=== PATIENT | male | born 1945 | race Caucasian/White ===

== ENCOUNTER 2018-06-11 13:47 | Emergency (ER) | payer MEDICARE ==
[~2018-06-11] VITALS: Ht 175.3 cm; Wt 77.1 kg
[2018-06-11 13:56] VITALS: BP 120/88
[2018-06-11] MEDS ORDERED: methylPREDNISolone SOD SUCC 125 MG/2 ML VL IM ONE (14:45)
[2018-06-11] MEDS ORDERED: diphenhdrAMINE HCL 50 MG/1 ML VL IM ONE (14:45)
[2018-06-11] MEDS ORDERED: diphenhdrAMINE HCL 25 MG CAP PO ONE (15:15)
== END 2018-06-11 14:10 | disposition home or self-care (01) ==
LOC: ER 13:47
DX: L25.8 Unspecified contact dermatitis due to other agents (principal); R50.9 Fever, unspecified; R06.02 Shortness of breath; T37.0X5A Adverse effect of sulfonamides, initial encounter; F17.210 Nicotine dependence, cigarettes, uncomplicated; Z90.49 Acquired absence of other specified parts of digestive tract; Y92.89 Other specified places as the place of occurrence of the external cause
CPT/HCPCS: 96372; 99283; J2930

== ENCOUNTER 2018-11-12 15:41 | Inpatient (IN) | payer MEDICARE ==
[~2018-11-12] VITALS: Ht 175.3 cm; Wt 82.5 kg
[2018-11-12 16:29] LABS: Basophils # (auto) 0.1 uL; Basophils % (auto) 0.5 % (0.0-2.0); Eosinophils # (auto) 0 uL; Hemoglobin 13.1 g/dL (13.5-17.5); Lymphocytes # (auto) 1.2 uL; Lymphocytes % (auto) 7.6 % (10.0-50.0); Mean Corpuscular Hgb Conc. 32.8 g/dL (32.0-36.0); Mean Corpuscular Volume 94.5 fL (80.0-100.0); Monocytes # (auto) 1.7 uL; Neutrophils # (auto) 12.5 uL; Neutrophils % (auto) 80.9 % (37.0-80.0); Platelet Count (auto) 196 10^3/uL (140-450); Red Blood Cells 4.23 10^6/uL (4.5-5.90); Red Cell Distribution Width 12.7 % (11.8-14.3); White Blood Cell 15.5 10^3/uL (4.4-10.8)
[2018-11-12 16:40] LABS: Albumin 3.3 g/dL (3.4-5.0); Anion Gap 5 (5-15); Blood Urea Nitrogen 17 mg/dL (7-18); Carbon Dioxide 25 mmol/L (21-32); Chloride 105 mmol/L (98-107); Glucose 166 mg/dL (74-106); Magnesium 2.4 mg/dL (1.6-2.6); Potassium 4.1 mmol/L (3.5-5.1); Sodium 135 mmol/L (136-145)
[2018-11-12 16:46] LABS: Alanine Aminotransferase 17 U/L (16-61); Alkaline Phosphatase 65 U/L (45-117); Aspartate Aminotransferase 11 U/L (15-37); BUN/Creatinine Ratio 13.9; Bilirubin, Total 0.5 mg/dL (0.2-1.0); GFR African American 75 mL/min; GFR Non-African American 62 mL/min; Total Protein 7.3 g/dL (6.4-8.2)
[2018-11-12] MEDS ORDERED: ASPirin 81 mg TAB PO ONE (17:15)
[2018-11-12] MEDS ORDERED: cefTRIAXone 1GM/50ML D5W 50 ML IV ONE (17:30)
[2018-11-12 17:33] LABS: Basophils # (auto) 0.1 uL; Basophils % (auto) 0.3 % (0.0-2.0); Eosinophils # (auto) 0 uL; Eosinophils % (auto) 0.1 % (0.0-7.0); Hematocrit 41.3 % (41.0-53.0); Hemoglobin 13.8 g/dL (13.5-17.5); Lymphocytes # (auto) 1.7 uL; Lymphocytes % (auto) 10.2 % (10.0-50.0); Mean Corpuscular Hemoglobin 31.5 pg (28.0-32.0); Mean Corpuscular Hgb Conc. 33.3 g/dL (32.0-36.0); Mean Corpuscular Volume 94.7 fL (80.0-100.0); Monocytes # (auto) 2.6 uL; Monocytes % (auto) 15.2 % (0.0-12.0); Neutrophils # (auto) 12.7 uL; Neutrophils % (auto) 74.2 % (37.0-80.0); Platelet Count (auto) 198 10^3/uL (140-450); Red Blood Cells 4.36 10^6/uL (4.5-5.90); Red Cell Distribution Width 12.8 % (11.8-14.3); White Blood Cell 17.1 10^3/uL (4.4-10.8)
[2018-11-12] MEDS ORDERED: IOHEXOL 350 MG/ML 100ML IJ ONE (17:41)
[2018-11-12 17:48] LABS: Albumin 3.5 g/dL (3.4-5.0); Calcium 9.4 mg/dL (8.5-10.1); Magnesium 2.4 mg/dL (1.6-2.6); Potassium 4.8 mmol/L (3.5-5.1)
[2018-11-12 17:50] LABS: BUN/Creatinine Ratio 16.1; Bilirubin, Total 0.5 mg/dL (0.2-1.0); Total Protein 7.6 g/dL (6.4-8.2)
[2018-11-12 18:03] LABS: INR 0.97 (0.9-1.15); Partial Thromboplastin Time 27.3 sec (23.78-33.04); Prothrombin Time 10.4 sec (9.27-12.13)
[2018-11-12] MEDS ORDERED: MORPHINE SULF INJ 2 MG/ML SYRINGE 1ML IV PRN ×2 (19:00)
[2018-11-12] MEDS ORDERED: HYDROcodone-ACET 5/325MG TAB PO PRN (19:00)
[2018-11-12] MEDS ORDERED: ONDANSETRON HCL 4 MG/2 ML VIAL IV PRN (19:00)
[2018-11-12] MEDS ORDERED: ACETAMINOPHEN 500 MG TAB PO PRN (19:00)
[2018-11-12] MEDS ORDERED: NITROGLYCERIN 0.4 MG SL TAB SL PRN (19:00)
[2018-11-12 19:20] VITALS: BP 122/58
[2018-11-12] MEDS ORDERED: ENOXAPARIN SOD 40 MG/0.4 ML SYRINGE SC SCH (20:14)
[2018-11-12 22:00] VITALS: BP 123/74
[2018-11-12] MEDS: ATORVASTATIN 20 MG TAB PO SCH (22:07)
[2018-11-12] MEDS: TAMSULOSIN HYDROCHLORIDE 0.4 MG CAP PO SCH (22:07)
[2018-11-12] MEDS: AZITHROMYCIN 500MG/ 250ML 250 ML IV SCH (22:08)
[2018-11-12] MEDS: ENOXAPARIN SOD 80 MG/0.8ML SYRINGE SC SCH (22:08)
[2018-11-12 23:21] VITALS: BP 123/74
[2018-11-13 05:21] VITALS: BP 106/53
[2018-11-13 05:58] LABS: Basophils # (auto) 0.1 uL; Basophils % (auto) 0.6 % (0.0-2.0); Eosinophils # (auto) 0.1 uL; Eosinophils % (auto) 0.8 % (0.0-7.0); Hematocrit 37.7 % (41.0-53.0); Hemoglobin 12.7 g/dL (13.5-17.5); Lymphocytes # (auto) 2.3 uL; Lymphocytes % (auto) 18.6 % (10.0-50.0); Mean Corpuscular Hemoglobin 31.7 pg (28.0-32.0); Mean Corpuscular Hgb Conc. 33.6 g/dL (32.0-36.0); Mean Corpuscular Volume 94.3 fL (80.0-100.0); Monocytes # (auto) 1.7 uL; Monocytes % (auto) 13.6 % (0.0-12.0); Neutrophils # (auto) 8.2 uL; Neutrophils % (auto) 66.4 % (37.0-80.0); Platelet Count (auto) 183 10^3/uL (140-450); Red Blood Cells 3.99 10^6/uL (4.5-5.90); Red Cell Distribution Width 12.5 % (11.8-14.3); White Blood Cell 12.4 10^3/uL (4.4-10.8)
[2018-11-13 06:15] LABS: BUN/Creatinine Ratio 16.5; Potassium 4.3 mmol/L (3.5-5.1)
[2018-11-13 06:18] LABS: Cholesterol 108 mg/dL (< 200); HDL Cholesterol 52 mg/dL (40-59); LDL Cholesterol 52 mg/dL (< 100); Triglycerides 75 mg/dL (< 150)
[2018-11-13] MEDS: ALBUTEROL SULF 2.5 MG/0.5ML(0.5%) NEB SOLN NEB SCH ×3 (08:10→18:38)
[2018-11-13] MEDS: IPRATROPIUM BROM 0.5 MG/2.5ML INH SOL NEB SCH ×3 (08:10→18:38)
[2018-11-13] MEDS: cefTRIAXone 1GM/50ML D5W 50 ML IV SCH (08:48)
[2018-11-13] MEDS: PANTOPRAZOLE 40 MG/10 ML VIAL IV SCH (08:48)
[2018-11-13] MEDS: ENOXAPARIN SOD 80 MG/0.8ML SYRINGE SC SCH ×2 (08:49→21:47)
[2018-11-13] MEDS: FINASTERIDE 5 MG TAB PO SCH (08:49)
[2018-11-13 08:51] VITALS: BP 97/61
[2018-11-13] MEDS: AZITHROMYCIN 500MG/ 250ML 250 ML IV SCH (13:14)
[2018-11-13 13:29] VITALS: BP 103/61
[2018-11-13 14:09] LABS: Urine Bacteria FEW /hpf (None Seen); Urine Blood 1+ /uL (Negative); Urine Specific Gravity 1.026 (1.001-1.035); Urine WBC <1 /hpf (0 - 3)
[2018-11-13] MEDS: SODIUM CHLORIDE 0.9% 1,000 ML IV SCH (15:15)
[2018-11-13 17:30] VITALS: BP 96/55
[2018-11-13] MEDS: TAMSULOSIN HYDROCHLORIDE 0.4 MG CAP PO SCH (18:02)
[2018-11-13] MEDS: ATORVASTATIN 20 MG TAB PO SCH (21:46)
[2018-11-13 21:53] VITALS: BP 102/60
[2018-11-14 04:42] VITALS: BP 114/68
[2018-11-14] MEDS: SODIUM CHLORIDE 0.9% 1,000 ML IV SCH ×3 (04:44→21:50)
[2018-11-14] MEDS: ALBUTEROL SULF 2.5 MG/0.5ML(0.5%) NEB SOLN NEB SCH ×2 (06:54→19:35)
[2018-11-14] MEDS: IPRATROPIUM BROM 0.5 MG/2.5ML INH SOL NEB SCH ×2 (06:55→19:35)
[2018-11-14] MEDS: cefTRIAXone 1GM/50ML D5W 50 ML IV SCH (08:40)
[2018-11-14] MEDS: PANTOPRAZOLE 40 MG/10 ML VIAL IV SCH (10:22)
[2018-11-14] MEDS: AZITHROMYCIN 500MG/ 250ML 250 ML IV SCH (10:22)
[2018-11-14] MEDS: FINASTERIDE 5 MG TAB PO SCH (10:22)
[2018-11-14] MEDS: ENOXAPARIN SOD 80 MG/0.8ML SYRINGE SC SCH ×2 (10:22→21:39)
[2018-11-14] MEDS: traMADol HCL 50 MG TAB PO PRN ×2 (11:25→18:49)
[2018-11-14] MEDS: TAMSULOSIN HYDROCHLORIDE 0.4 MG CAP PO SCH (18:02)
[2018-11-14] MEDS: ATORVASTATIN 20 MG TAB PO SCH (21:39)
[2018-11-14 22:00] VITALS: BP 99/51
[2018-11-15 05:00] VITALS: BP 104/68
[2018-11-15] MEDS: IPRATROPIUM BROM 0.5 MG/2.5ML INH SOL NEB SCH ×3 (06:22→18:19)
[2018-11-15] MEDS: ALBUTEROL SULF 2.5 MG/0.5ML(0.5%) NEB SOLN NEB SCH ×3 (06:22→18:19)
[2018-11-15 06:39] LABS: Basophils # (auto) 0.1 uL; Basophils % (auto) 0.4 % (0.0-2.0); Eosinophils # (auto) 0.2 uL; Eosinophils % (auto) 1.3 % (0.0-7.0); Hematocrit 33.6 % (41.0-53.0); Hemoglobin 11.3 g/dL (13.5-17.5); Lymphocytes # (auto) 1.5 uL; Lymphocytes % (auto) 11.9 % (10.0-50.0); Mean Corpuscular Hemoglobin 31.7 pg (28.0-32.0); Mean Corpuscular Hgb Conc. 33.8 g/dL (32.0-36.0); Mean Corpuscular Volume 93.9 fL (80.0-100.0); Monocytes # (auto) 1.7 uL; Monocytes % (auto) 13.7 % (0.0-12.0); Neutrophils % (auto) 72.7 % (37.0-80.0); Platelet Count (auto) 192 10^3/uL (140-450); Red Blood Cells 3.58 10^6/uL (4.5-5.90); Red Cell Distribution Width 12.6 % (11.8-14.3); White Blood Cell 12.4 10^3/uL (4.4-10.8)
[2018-11-15] MEDS: SODIUM CHLORIDE 0.9% 1,000 ML IV SCH ×2 (07:15→17:05)
[2018-11-15 09:00] VITALS: BP 108/64
[2018-11-15] MEDS: cefTRIAXone 1GM/50ML D5W 50 ML IV SCH (11:02)
[2018-11-15] MEDS: PANTOPRAZOLE 40 MG/10 ML VIAL IV SCH (11:03)
[2018-11-15] MEDS: AZITHROMYCIN 250 MG TAB PO SCH (11:03)
[2018-11-15] MEDS: FINASTERIDE 5 MG TAB PO SCH (11:03)
[2018-11-15] MEDS: APIXABAN 5 MG TAB PO SCH ×2 (11:04→23:11)
[2018-11-15 13:00] VITALS: BP 112/68
[2018-11-15] MEDS: TAMSULOSIN HYDROCHLORIDE 0.4 MG CAP PO SCH (18:00)
[2018-11-15 20:28] VITALS: BP 112/68
[2018-11-15 21:30] VITALS: BP 110/58
[2018-11-15] MEDS: ATORVASTATIN 20 MG TAB PO SCH (23:11)
[2018-11-16] MEDS: SODIUM CHLORIDE 0.9% 1,000 ML IV SCH ×3 (03:15→23:15)
[2018-11-16 04:30] VITALS: BP 116/77
[2018-11-16 05:13] VITALS: BP 110/74
[2018-11-16] MEDS ORDERED: DIGOXIN (250MCG/ML) 2 ML AMPULE IV ONE (05:30)
[2018-11-16] MEDS: IPRATROPIUM BROM 0.5 MG/2.5ML INH SOL NEB SCH ×3 (06:16→17:59)
[2018-11-16] MEDS: ALBUTEROL SULF 2.5 MG/0.5ML(0.5%) NEB SOLN NEB SCH ×3 (06:16→17:59)
[2018-11-16 08:00] VITALS: BP 106/74
[2018-11-16] MEDS ORDERED: DILTIAZEM HCL 25 MG/5 ML VIAL IV PRN ×4 (08:15→08:45)
[2018-11-16] MEDS: cefTRIAXone 1GM/50ML D5W 50 ML IV SCH (09:45)
[2018-11-16] MEDS: AZITHROMYCIN 250 MG TAB PO SCH (09:46)
[2018-11-16] MEDS: FINASTERIDE 5 MG TAB PO SCH (09:46)
[2018-11-16] MEDS: PANTOPRAZOLE 40 MG/10 ML VIAL IV SCH (09:46)
[2018-11-16] MEDS: APIXABAN 5 MG TAB PO SCH ×2 (09:47→22:50)
[2018-11-16 10:28] LABS: Basophils # (auto) 0 uL; Basophils % (auto) 0.3 % (0.0-2.0); Eosinophils # (auto) 0.2 uL; Eosinophils % (auto) 1.4 % (0.0-7.0); Hematocrit 36.2 % (41.0-53.0); Lymphocytes # (auto) 1.4 uL; Lymphocytes % (auto) 11.1 % (10.0-50.0); Mean Corpuscular Hemoglobin 31.1 pg (28.0-32.0); Mean Corpuscular Hgb Conc. 33.2 g/dL (32.0-36.0); Mean Corpuscular Volume 93.8 fL (80.0-100.0); Monocytes # (auto) 1.5 uL; Monocytes % (auto) 12.1 % (0.0-12.0); Neutrophils # (auto) 9.4 uL; Neutrophils % (auto) 75.1 % (37.0-80.0); Platelet Count (auto) 239 10^3/uL (140-450); Red Blood Cells 3.86 10^6/uL (4.5-5.90); Red Cell Distribution Width 12.4 % (11.8-14.3); White Blood Cell 12.5 10^3/uL (4.4-10.8)
[2018-11-16 10:43] LABS: Albumin 2.5 g/dL (3.4-5.0); Anion Gap 5 (5-15); Blood Urea Nitrogen 10 mg/dL (7-18); Calcium 8.4 mg/dL (8.5-10.1); Carbon Dioxide 24 mmol/L (21-32); Chloride 108 mmol/L (98-107); Glucose 131 mg/dL (74-106); Potassium 3.5 mmol/L (3.5-5.1); Sodium 137 mmol/L (136-145)
[2018-11-16 10:48] LABS: Alanine Aminotransferase 34 U/L (16-61); Alkaline Phosphatase 87 U/L (45-117); Aspartate Aminotransferase 30 U/L (15-37); BUN/Creatinine Ratio 10.5; Bilirubin, Total 0.4 mg/dL (0.2-1.0); GFR African American 100 mL/min; GFR Non-African American 83 mL/min; Total Protein 6.5 g/dL (6.4-8.2)
[2018-11-16 12:06] VITALS: BP 101/63
[2018-11-16] MEDS ORDERED: SOTALOL HCL 80 MG TAB PO ONE (12:30)
[2018-11-16 16:52] VITALS: BP 118/66
[2018-11-16] MEDS: TAMSULOSIN HYDROCHLORIDE 0.4 MG CAP PO SCH (18:00)
[2018-11-16 22:00] VITALS: BP 112/93
[2018-11-16] MEDS: SOTALOL HCL 80 MG TAB PO SCH (22:50)
[2018-11-16] MEDS: ATORVASTATIN 20 MG TAB PO SCH (22:50)
[2018-11-16] MEDS: MAGNESIUM OXIDE 400 MG TAB PO SCH (22:50)
[2018-11-17 05:40] VITALS: BP 108/68
[2018-11-17] MEDS: IPRATROPIUM BROM 0.5 MG/2.5ML INH SOL NEB SCH ×3 (07:53→18:30)
[2018-11-17] MEDS: ALBUTEROL SULF 2.5 MG/0.5ML(0.5%) NEB SOLN NEB SCH ×3 (07:53→18:30)
[2018-11-17 08:53] VITALS: BP 107/69
[2018-11-17] MEDS: SODIUM CHLORIDE 0.9% 1,000 ML IV SCH ×2 (09:15→19:15)
[2018-11-17] MEDS: cefTRIAXone 1GM/50ML D5W 50 ML IV SCH (10:00)
[2018-11-17] MEDS: AZITHROMYCIN 250 MG TAB PO SCH (10:36)
[2018-11-17] MEDS: PANTOPRAZOLE 40 MG/10 ML VIAL IV SCH (10:36)
[2018-11-17] MEDS: FINASTERIDE 5 MG TAB PO SCH (10:38)
[2018-11-17] MEDS: SOTALOL HCL 80 MG TAB PO SCH ×2 (10:38→22:00)
[2018-11-17] MEDS: MAGNESIUM OXIDE 400 MG TAB PO SCH ×2 (10:38→22:15)
[2018-11-17] MEDS: APIXABAN 5 MG TAB PO SCH ×2 (10:38→22:15)
[2018-11-17 17:00] VITALS: BP 98/55
[2018-11-17] MEDS: TAMSULOSIN HYDROCHLORIDE 0.4 MG CAP PO SCH (18:02)
[2018-11-17 22:00] VITALS: BP 99/58
[2018-11-17] MEDS: ATORVASTATIN 20 MG TAB PO SCH (22:15)
[2018-11-18 05:00] VITALS: BP 114/60
[2018-11-18] MEDS: SODIUM CHLORIDE 0.9% 1,000 ML IV SCH ×2 (05:15→15:15)
[2018-11-18] MEDS: IPRATROPIUM BROM 0.5 MG/2.5ML INH SOL NEB SCH ×3 (06:44→19:36)
[2018-11-18] MEDS: ALBUTEROL SULF 2.5 MG/0.5ML(0.5%) NEB SOLN NEB SCH ×3 (06:44→19:36)
[2018-11-18 08:32] VITALS: BP 108/65
[2018-11-18] MEDS: MAGNESIUM OXIDE 400 MG TAB PO SCH ×2 (10:37→21:57)
[2018-11-18] MEDS: FINASTERIDE 5 MG TAB PO SCH (10:38)
[2018-11-18] MEDS: APIXABAN 5 MG TAB PO SCH ×2 (10:38→21:56)
[2018-11-18] MEDS: PANTOPRAZOLE 40 MG/10 ML VIAL IV SCH (10:38)
[2018-11-18] MEDS: SOTALOL HCL 80 MG TAB PO SCH ×2 (10:39→21:55)
[2018-11-18] MEDS: cefTRIAXone 1GM/50ML D5W 50 ML IV SCH (10:39)
[2018-11-18] MEDS: AZITHROMYCIN 250 MG TAB PO SCH (10:39)
[2018-11-18 11:58] VITALS: BP 144/85
[2018-11-18 16:51] VITALS: BP 104/66
[2018-11-18] MEDS: TAMSULOSIN HYDROCHLORIDE 0.4 MG CAP PO SCH (18:00)
[2018-11-18 21:49] VITALS: BP 104/66
[2018-11-18] MEDS: ATORVASTATIN 20 MG TAB PO SCH (21:56)
[2018-11-18 22:00] VITALS: BP 115/57
[2018-11-19] MEDS: SODIUM CHLORIDE 0.9% 1,000 ML IV SCH ×2 (01:15→11:15)
[2018-11-19 05:00] VITALS: BP 113/65
[2018-11-19] MEDS: ALBUTEROL SULF 2.5 MG/0.5ML(0.5%) NEB SOLN NEB SCH ×2 (06:04→13:26)
[2018-11-19] MEDS: IPRATROPIUM BROM 0.5 MG/2.5ML INH SOL NEB SCH ×2 (06:04→13:26)
[2018-11-19 06:08] LABS: Basophils # (auto) 0.1 uL; Basophils % (auto) 0.6 % (0.0-2.0); Eosinophils # (auto) 0.4 uL; Eosinophils % (auto) 4.1 % (0.0-7.0); Hematocrit 36.2 % (41.0-53.0); Hemoglobin 12.2 g/dL (13.5-17.5); Lymphocytes # (auto) 2.4 uL; Lymphocytes % (auto) 22.5 % (10.0-50.0); Mean Corpuscular Hemoglobin 31.3 pg (28.0-32.0); Mean Corpuscular Hgb Conc. 33.6 g/dL (32.0-36.0); Monocytes # (auto) 1.1 uL; Monocytes % (auto) 10.5 % (0.0-12.0); Neutrophils # (auto) 6.6 uL; Neutrophils % (auto) 62.3 % (37.0-80.0); Platelet Count (auto) 281 10^3/uL (140-450); Red Blood Cells 3.89 10^6/uL (4.5-5.90); Red Cell Distribution Width 12.8 % (11.8-14.3); White Blood Cell 10.7 10^3/uL (4.4-10.8)
[2018-11-19 06:17] LABS: Albumin 2.6 g/dL (3.4-5.0); Calcium 8.6 mg/dL (8.5-10.1); Potassium 4.1 mmol/L (3.5-5.1)
[2018-11-19 06:22] LABS: Bilirubin, Total 0.3 mg/dL (0.2-1.0); Total Protein 6.4 g/dL (6.4-8.2)
[2018-11-19 07:33] VITALS: BP 110/68
[2018-11-19] MEDS: cefTRIAXone 1GM/50ML D5W 50 ML IV SCH (09:49)
[2018-11-19] MEDS: AZITHROMYCIN 250 MG TAB PO SCH (09:49)
[2018-11-19] MEDS: PANTOPRAZOLE 40 MG/10 ML VIAL IV SCH (09:49)
[2018-11-19] MEDS: MAGNESIUM OXIDE 400 MG TAB PO SCH (09:49)
[2018-11-19] MEDS: FINASTERIDE 5 MG TAB PO SCH (09:49)
[2018-11-19] MEDS: SOTALOL HCL 80 MG TAB PO SCH (09:50)
[2018-11-19] MEDS ORDERED: APIXABAN 5 MG TAB PO ONE (10:00)
[2018-11-19] MEDS ORDERED: APIXABAN 2.5 MG TAB PO ONE (10:00)
[2018-11-19 11:15] VITALS: BP 110/68
[2018-11-19 11:27] VITALS: BP 113/68
[2018-11-19] MEDS ORDERED: APIXABAN 5 MG TAB PO SCH (22:00)
[2018-11-22] MEDS ORDERED: APIXABAN 5 MG TAB PO SCH (10:00)
== END 2018-11-19 13:35 | disposition home or self-care (01) | DRG 871 ==
LOC: ER 15:46 → TELE 19:04 → TELE-EAST 20:30
PROVIDERS: ADMIT Nurse Practitioner Acute Care; ATTEND Family Medicine
DX: A41.9 Sepsis, unspecified organism (principal); J18.1 Lobar pneumonia, unspecified organism; I82.432 Acute embolism and thrombosis of left popliteal vein; I82.412 Acute embolism and thrombosis of left femoral vein; E78.5 Hyperlipidemia, unspecified; C61 Malignant neoplasm of prostate; N40.0 Benign prostatic hyperplasia without lower urinary tract symptoms; K27.9 Peptic ulcer, site unspecified, unspecified as acute or chronic, without hemorrhage or perforation; D64.9 Anemia, unspecified; E78.00 Pure hypercholesterolemia, unspecified; I48.91 Unspecified atrial fibrillation; D63.8 Anemia in other chronic diseases classified elsewhere; Z79.01 Long term (current) use of anticoagulants; Z82.49 Family history of ischemic heart disease and other diseases of the circulatory system; Z85.46 Personal history of malignant neoplasm of prostate; Z87.891 Personal history of nicotine dependence; Z90.79 Acquired absence of other genital organ(s); Z92.3 Personal history of irradiation; Z79.899 Other long term (current) drug therapy; Z90.49 Acquired absence of other specified parts of digestive tract
CPT/HCPCS: 36415; 36600; 71045; 71046; 71275; 80048; 80053; 80061; 81001; 82805; 83036; 83605; 83735; 83880; 84443; 84484; 85025; 85379; 85610; 85730; 87040; 87070; 87077; 87086; 87186; 87205; 87804; 93005; 93306; 93970; 94640; 94761; 96361; 96365; 96367; C9113; G0378; J0696